=== PATIENT | male | born 1970 | race Caucasian/White ===

== ENCOUNTER 2018-04-10 07:00 | Inpatient (IN) | payer OTHER ==
[~2018-04-10] VITALS: Ht 177.8 cm; Wt 74.8 kg
[2018-04-10] MEDS ORDERED: POTASSIUM600 MG PO (08:40)
[2018-04-10] MEDS ORDERED: NEXIUM 24HR20 MG PO (08:40)
== END 2018-04-23 16:39 | disposition home or self-care (01) | DRG 661 ==
LOC: EDSTATUS 07:00 → ADM 07:00 → O/R 04-21 05:00 → SURH 04-21 07:00 → SURG 04-21 10:40
PROVIDERS: Urology
PROC: 0T778DZ Dilation of Left Ureter with Intraluminal Device, Via Natural or Artificial Opening Endoscopic (ICD-10-PCS; 2018-04-21)
PROC: 0TC18ZZ Extirpation of Matter from Left Kidney, Via Natural or Artificial Opening Endoscopic (ICD-10-PCS; principal; 2018-04-21 07:00)
PROC: BT12YZZ Fluoroscopy of Left Kidney using Other Contrast (ICD-10-PCS; 2018-04-23)
DX: N20.0 Calculus of kidney (principal)